=== PATIENT | female | born 1955 | race Caucasian/White ===

== ENCOUNTER → 2018-05-11 11:04 | Outpatient (CLI) | payer OTHER, SELFPAY ==
[2018-05-11 11:36] LABS: Urine Pregnancy, HCG Qual. Negative (Negative)
[2018-05-11 11:38] LABS: Activated Partial Thrombo Time 27.3 seconds (23.6-34.0); Prothrombin Time 10.3 seconds (9.4-11.8)
[2018-05-11 11:52] LABS: Basophils # 0.1 K/mm3 (0-0.2); Eosinophils # 0.2 K/mm3 (0.0-0.4); Eosinophils % 3.8 % (0.1-12.0); Hematocrit 36.5 % (37.0-47.0); Lymphocytes # 1.8 K/mm3 (0.7-4.5); Lymphocytes % 36.7 % (10-50); Mean Corpuscular HGB Conc 32.8 g/dL (31.8-35.4); Mean Corpuscular Hemoglobin 29.4 pg (27.0-31.2); Mean Corpuscular Volume 89.7 fl (81-99); Monocytes # 0.3 K/mm3 (0.1-1.0); Monocytes % 6.4 % (1.7-9.3); Neutrophils # 2.6 K/mm3 (1.8-7.8); Neutrophils % 52.2 % (37.0-80.0); Platelet Count 202 K/mm3 (142-424); Red Blood Count 4.07 M/mm3 (4.20-5.40); Red Cell Distribution Width 13.9 % (11.5-17.5); White Blood Count 4.9 K/mm3 (4.8-10.8)
[2018-05-11 12:59] LABS: Alanine Aminotransferase 46 U/L (12-78); Albumin Level 4.2 gm/dL (3.4-5.0); Albumin/Globulin Ratio 1.2 (1.1-1.8); Alkaline Phosphatase 58 U/L (46-116); Anion Gap 15.3 mEq/L (5-15); Aspartate Amino Transferase 23 U/L (15-37); Bilirubin,Total 0.6 mg/dL (0.2-1.0); Blood Urea Nitrogen 36 mg/dL (7-18); Calcium 9.3 mg/dL (8.5-10.1); Carbon Dioxide 27 mmol/L (21.0-32.0); Chloride 103 mmol/L (98-107); Estimated Glomerular Filt Rate 27 ml/min (>60); GFR (African American) 32 ML/MIN (>60); Globulin 3.4 gm/dl (1.3-3.2); Glucose 105 mg/dL (74-106); Potassium 4.3 mmoL/L (3.5-5.1); Sodium 141 mmol/L (136-145); Total Protein,Serum 7.6 gm/dL (6.4-8.2)
== END ==
PROVIDERS: Visit Provider Surgery
DX: E66.01 Morbid (severe) obesity due to excess calories (principal)
CPT/HCPCS: 36415; 80053; 81025; 85025; 85610; 85730

== ENCOUNTER → 2018-06-02 14:30 | Outpatient (CLI) | payer OTHER, SELFPAY ==
[2018-06-02 15:50] LABS: Blood Urea Nitrogen 28 mg/dL (7-18); Calcium 9.3 mg/dL (8.5-10.1); Carbon Dioxide 27 mmol/L (21.0-32.0); Chloride 101 mmol/L (98-107); Creatinine,Serum 1.17 mg/dL (0.55-1.02); Estimated Glomerular Filt Rate 47 ml/min (>60); GFR (African American) 57 ML/MIN (>60); Glucose 100 mg/dL (74-106); Sodium 139 mmol/L (136-145)
== END ==
PROVIDERS: Visit Provider Surgery
DX: E66.01 Morbid (severe) obesity due to excess calories (principal)
CPT/HCPCS: 36415; 80048

== ENCOUNTER → 2018-07-20 14:09 | Outpatient (CLI) | payer OTHER, SELFPAY ==
[2018-07-20 16:02] LABS: Blood Urea Nitrogen 16 mg/dL (7-18); Creatinine,Serum 0.97 mg/dL (0.55-1.02); Estimated Glomerular Filt Rate 58 ml/min (>60); GFR (African American) 70 ML/MIN (>60)
== END ==
PROVIDERS: Visit Provider Surgery
DX: G89.18 Other acute postprocedural pain (principal)
CPT/HCPCS: 36415; 82565; 84520

== ENCOUNTER → 2018-07-21 10:11 | Outpatient (CLI) | payer OTHER, SELFPAY ==
--- NOTE | 2018-07-21 10:20 | CT_ITS ---
CT abdomen pelvis w con CLINICAL INDICATION: Left-sided abdominal pain ITS.REASON: ABDOMINAL PAIN ORDERING PHYSICIAN: Taco Travis MD PATIENT AGE: 63 years COMPARISON: And TECHNIQUE: Axial images obtained with sagittal and coronal reformats. All CT scans at the facility use one or more dose reduction, viz: automated exposure control, ma/kV adjustment per patient size (including targeted exams where dose is matched to indication, i.e. head), or iterative reconstruction technique. PROCEDURE: Oral Contrast: Redicat IV Contrast: 75 mL of Isovue-370. FINDINGS: There are atelectatic or fibrotic changes in the left lung base. The liver, adrenal glands, and pancreas have an unremarkable appearance. There is a small subcapsular isodensity involving the medial aspect of the spleen at 1 cm axial image #16 nonspecific. There is some minimal stranding of the fat medial to the spleen. There is small amount gas in the distal esophagus with surgical clips at the distal esophageal region. Prior gastric sleeve surgery of the stomach Unremarkable appendix. No intestinal obstruction or free air. There has been prior hysterectomy. There is some mild thickening of the descending and sigmoid colon. This could be due to nondistention versus mild colitis. No evidence of diverticulitis. There is a tiny umbilical hernia containing fat. There is mild stranding of the anterior abdominal wall fat in the right upper quadrant and could be due to postsurgical change. No acute bony anomalies. IMPRESSION: 1. Status post gastric sleeve surgery. There is some mild stranding of the fat in the left upper quadrant lateral to the GE junction and medial to the spleen with some minimal thickening of the pleura of the diaphragm at this area. This could be postsurgical in nature. Suggest 3 month follow-up to confirm stability or resolution. 2. There is a 1 cm cystic area in the subcapsular region of the spleen medially. This is nonspecific and may nearly represent a splenic cyst. Continued follow-up suggested in 3 months. This should be performed with IV contrast. 3. Possible colitis of the descending and sigmoid colon
--- NOTE | 2018-07-21 10:53 | HMH.ITSHM ---
Current Home Medications as stated by this patient Margarita Orozco or residential sales representative. []B-12,SIMVASTATIN,CITRACEL,FERROUS SULFATED, [place],LOSARTIN,LEVOTHYROXINE,OMEPRAZOLE
== END ==
PROVIDERS: PCP Family Medicine; Visit Provider Surgery
DX: G89.18 Other acute postprocedural pain (principal); R10.9 Unspecified abdominal pain
CPT/HCPCS: 74177; Q9967

== ENCOUNTER → 2019-08-05 09:56 | Outpatient (CLI) | payer OTHER, SELFPAY ==
[2019-08-05 10:53] LABS: Erythrocyte Sedimentation Rate 15 mm/hr (0-30)
[2019-08-05 11:57] LABS: Uric Acid 3.8 mg/dL (2.6-7.2)
[2019-08-05 12:05] LABS: C-Reactive Protein < 0.2 mg/dL (0.0-0.9)
[2019-08-06 19:12] LABS: RA Latex Turbid. <10.0 IU/mL (0.0-13.9)
[2019-08-07 07:47] LABS: C-Peptide 2.4 ng/mL (1.1-4.4)
[2019-08-24 15:58] LABS: Antinuclear Antibodies (ANA) NEGATIVE
== END ==
PROVIDERS: Visit Provider Orthopaedic Surgery Hand Surgery
DX: M06.049 Rheumatoid arthritis without rheumatoid factor, unspecified hand (principal)
CPT/HCPCS: 36415; 84550; 84681; 85651; 86038; 86140; 86431

== ENCOUNTER 2021-01-16 13:40 | Emergency (ER) | payer OTHER, SELFPAY ==
[2021-01-16] VITALS (7 sets, daily range): BP systolic 115–134; BP diastolic 68–83; PULSE 60–69; RESP 13–20; TEMP 36.9–37.1; O2SAT 94–98; BMI 31.1
--- NOTE | 2021-01-16 13:40 | ECG_ITS ---
APPROVED REPORT Exam: Resting ECG HR:74 bpm ECG Measurements Heart Rate 74 AXES [place] 154 P 21 QRSd 58 QRS 31 QT 356 T 11 QTc 395 Conclusion Normal sinus rhythm Normal ECG Electronically signed by : Jackson Aguirre, 01/16/2021 21:01:11
--- NOTE | 2021-01-16 13:53 | XR_ITS ---
PROCEDURE: XR CHEST 2V CLINICAL HISTORY: chest pain COMPARISON: No exams were available for comparison FINDINGS: The cardiomediastinal silhouette and pulmonary vascularity are within normal limits. There is a small hiatal hernia. Lungs are clear bilaterally. Degenerative change thoracic spine. IMPRESSION: No acute findings. Dictated by: Sotero Pedraza MD 01/16/2021 14:11 Sotero Pedraza MD in [place] 01/16/2021 14:11
--- NOTE | 2021-01-16 13:59 | HMH.EDGENADL ---
ED Disposition Clinical Impression: Atypical chest pain Disposition: Home, Self-Care Condition on Discharge: Good Instructions: DI for Atypical Chest Pain Additional Instructions: You have been evaluated for chest pain. Please follow-up with your primary care doctor within 24 to 48 hours. Follow-up with cardiology, Dr. Myers as soon as available. Return to the emergency department at once for any new or worsening symptoms, chest pain, shortness of breath, nausea, fatigue, any other concerns Time of Disposition: 17:49 - Critical Care Critical Care Time: No Attestation: On , the high probability of a clinically significant, sudden or life threatening deterioration of the following system(s) required my full and direct attention, intervention and personal management. The time I documented below is in addition to time spent performing reported procedures but includes the following listed in this critical care notation. Medical Decision Making - Medical Records Medical records reviewed: Yes: I reviewed the patient's medical records. - Ellis Inquiry Pt receiving controlled substance: No Vital Signs: 01/16/21 13:46 01/16/21 14:00 01/16/21 14:30 Temperature 98.7 F Temperature Source Oral Pulse Rate 69 66 Pulse Rate [Left Radial] 68 Respiratory Rate 17 18 16 Blood Pressure 130/82 130/83 Blood Pressure [Right Arm] 130/76 Blood Pressure Mean [Right Arm] 94 Blood Pressure Source Automatic Cuff Blood Pressure Source [Right Arm] Automatic Cuff Blood Pressure Position Sitting Blood Pressure Position [Right Arm] Sitting 02 Sat by Pulse Oximetry 94 L 97 94 L Oxygen Delivery Method Room Air Room Air 01/16/21 15:00 01/16/21 15:30 01/16/21 16:11 Temperature Temperature Source Pulse Rate 63 64 60 Pulse Rate [Left Radial] Respiratory Rate 15 13 14 Blood Pressure 124/76 134/83 123/80 Blood Pressure [Right Arm] Blood Pressure Mean [Right Arm] Blood Pressure Source Automatic Cuff Automatic Cuff Blood Pressure Source [Right Arm] Blood Pressure Position Sitting Sitting Blood Pressure Position [Right Arm] 02 Sat by Pulse Oximetry 97 97 97 Oxygen Delivery Method Room Air Room Air - Lab Data Lab Results 01/16/21 13:45: WBC 6.9, RBC 4.57, Hgb 13.6, Hct 40.9, MCV 89.6, MCH 29.9, MCHC 33.4, RDW 13.7, Plt Count 236, MPV 9.2, Neut % (Auto) 52.6, Lymph % (Auto) 38.7, Mitchell % (Auto) 4.8, Eos % (Auto) 2.8, Baso % (Auto) 1.1, Neut # (Auto) 3.6, Lymph # (Auto) 2.7, Mitchell # (Auto) 0.3, Eos # (Auto) 0.2, Baso # (Auto) 0.1 01/16/21 13:45: Sodium 140, Potassium 4.3, Chloride 103, Carbon Dioxide 30, Anion Gap 11.3, BUN 21 H, Creatinine 0.80, Estimated Creat Clear 69, Estimated GFR 72, Est GFR ( Amer) 87, Glucose 93, Calcium 9.6, Troponin I < 0.01 01/16/21 16:43: Troponin I < 0.01 Result diagrams: 01/16/21 13:45 01/16/21 13:45 Orders (Tests/Meds): ORDERS Category Date Time Status Troponin I Q3H Lab 01/16/21 20:00 Ordered ECG Request by /Nse Stat Y 01/16/21 13:53 Ordered - ECG Data Tracing #1 Sinus rhythm with ventricular rate of 74 bpm. QRS 58, QTc 395. No ST segment elevation. - ROBINSON Score for Non-Stemi Age of Patient: 60-69 years old Heart Rate: 50-69 bpm Systolic Blood Pressure: 120-139 mmhg Serum Creatinine: 0.80-1.19 mg/dl CHF Killip Class: I-No CHF Other Risk Factors: None Non-Stemi Risk Score: 102 Medical Decision Narrative: In summary this is a 65-year-old female with history of gastric sleeve procedure presenting to the emergency department with chest pain. Patient clinically stable on arrival. Vital signs within normal limits. Her story is quite concerning. Will obtain CBC, BMP, chest x-ray, EKG, troponin profile. Patient is already received aspirin. Initial EKG is reassuring. No ST segment elevation. No arrhythmia. Initial laboratory results are reassuring. No anemia. No glucose or electrolyte derangement. Initial troponin
[2021-01-16 14:43] LABS: Basophils # 0.1 K/mm3 (0-0.2); Basophils % 1.1 % (0.1-2.0); Chloride 103 mmol/L (98-107); Eosinophils # 0.2 K/mm3 (0.0-0.4); Eosinophils % 2.8 % (0.1-12.0); Hematocrit 40.9 % (37.0-47.0); Hemoglobin 13.6 g/dL (12.2-16.2); Lymphocytes # 2.7 K/mm3 (0.7-4.5); Lymphocytes % 38.7 % (10-50); Mean Corpuscular HGB Conc 33.4 g/dL (31.8-35.4); Mean Corpuscular Hemoglobin 29.9 pg (27.0-31.2); Mean Corpuscular Volume 89.6 fl (81-99); Mean Platelet Volume 9.2 fl (7.4-10.4); Monocytes # 0.3 K/mm3 (0.1-1.0); Monocytes % 4.8 % (1.7-9.3); Neutrophils # 3.6 K/mm3 (1.8-7.8); Neutrophils % 52.6 % (37.0-80.0); Platelet Count 236 K/mm3 (142-424); Potassium 4.3 mmoL/L (3.5-5.1); Red Blood Count 4.57 M/mm3 (4.20-5.40); Red Cell Distribution Width 13.7 % (11.5-17.5); Sodium 140 mmol/L (136-145); White Blood Count 6.9 K/mm3 (4.8-10.8)
[2021-01-16 14:46] LABS: Anion Gap 11.3 mEq/L (5-15); Blood Urea Nitrogen 21 mg/dl (7-17); Calcium 9.6 mg/dl (8.4-10.2); Carbon Dioxide 30 mmol/L (22.0-30.0); Creatinine Clearance Estimated 69 mL/min (50-200); Estimated Glomerular Filt Rate 72 ml/min (>60); GFR (African American) 87 ML/MIN (>60); Glucose 93 mg/dl (74-100)
[2021-01-16 14:59] LABS: Troponin I < 0.01 ng/ml (0.00-0.034)
--- NOTE | 2021-01-16 15:53 | CA_ITS ---
APPROVED REPORT EXAM: Comprehensive 2D, Doppler, and color-flow Echocardiogram Environmental Control Administrator: Gillian Cr, RCS, RVS Ht: 5 ft 2 in Wt: 170lbs BSA: 1.78 BP: 130/76 mmHg Indications: Cp radiating to Left arm,HTN, ex-smoker, Family hx-HD Hyperlipidemia 2D Dimensions IVSd 0.81 cm F: 0.6-1.0 LVEF (Visual) 68.90 % PWd 0.98 cm F: 0.6 - 1.0 LA Volume 50.50 mL LVDd 4.72 cm F: 3.9 - 5.3 LA Volume Index 28.37 mL/m2 (M/F) 16-34 LVDs 2.90 cm F: 2.2 - 3.5 Aortic Root 2.70 cm F: 2.7 - 3.3 Left Atrium 2.91 cm F: 2.7 - 3.8 LVOT 1.80 cm (M/F) 1.5-2.5 M-Mode Dimensions LA Diam 1.83 cm (1.9-4.0) LVDd 5.25 cm (3.5-5.7) Ao Diam 2.73 cm (2.0-3.7) LVDs 3.61 cm (3.5-5.7) EF (Teich) 58.60% EPSs 1.69 cm FS 31.20% EDV (Teich) 132.40 mL TAPSE 2.30 (<1.7) ESV (Teich) 54.80 mL LV Diastology E Decel Time 270.00 (160-240 msec) E/A Ratio 0.73 MED E' 12.10 (< 7 cm/sec) MED A' 11.30 cm/s E'/MED E' Ratio 6.35 (>14) LAT E' 13.80 (<10 cm/sec) LAT A' 11.30 cm/s E/LAT E' Ratio 5.57 (>14) Aortic Valve LVOT Max 107.00 (70-110 cm/s) LVOT VTI 26.45 cm AoV Peak Darin. 147.00 (50-130 cm/s) AI PHT 503.00 ms AO Peak GR. 8.70 mmHg AO Mean GR. 4.80 (<5 mmHg) AO VTI 36.31 (18-25 cm) ZURDO (VTI) 1.85 (2.5-4.5 cm2) Mitral Valve MV A Velocity 105.00 (40-130 cm/s) E/A Ratio 0.73 MV Decel. Time 270.00 (160-240 ms) Pulmonary Valve PV Peak Velocity 91.00 (50-150 cm/s) FL End VMAX 189.00 cm/s Tricuspid Valve TR P. Velocity 225.00 cm/s RAP Estimate 10.00 mmHg RVSP 30.30 mmHg Left Ventricle Left atrium is mildly enlarged, left ventricle is normal size, mild concentric left ventricular hypertrophy, visually estimated ejection fraction 55% with no regional wall motion abnormality, grade 1 diastolic dysfunction seen without tissue Doppler evidence of raise left atrial pressure. Right Ventricle Right atrium and right ventricular qualitatively mildly enlarged with normal contractility. Aortic Valve Aortic valve is minimally thickened and fibrosed, there is no aortic stenosis, there is mild aortic insufficiency. Mitral Valve Mitral valve leaflets are minimally thickened, there is mild mitral regurgitation. Tricuspid Valve Tricuspid valve is grossly normal, there is mild tricuspid regurgitation, calculated right ventricular systolic pressure within normal range. Pulmonic Valve Pulmonic valve is poorly visualized. Great Vessels Aortic root is normal size. There is atheromatous plaque seen in the ascending aorta. Pericardium No significant pericardial effusion noted. Conclusion 1. Mild biatrial enlargement, normal left ventricular size, mild concentric left ventricular hypertrophy, visually estimated ejection fraction 55% with no regional wall motion abnormality, grade 1 diastolic dysfunction seen without tissue Doppler evidence of raise left atrial pressure. 2. Thickened and calcified aortic valve without aortic stenosis, there is mild aortic insufficiency. 3. Atheromatous plaque seen in the ascending aorta. 4. Mild mitral and tricuspid regurgitation. 5. No significant pericardial effusion noted. Electronically signed by : Kelvin Maurer, 01/17/2021 16:16:06
--- NOTE | 2021-01-16 15:54 | HMH.CNCARD ---
History of Present Illness Consult date: 01/16/21 Requesting physician: Petrona Chou Consult reason: chest pain Chief complaint: Chest pain History of present illness: 65-year-old female presented to the ED with chest tightness and heaviness for the past 1-1/2-hour prior to arrival. Patient states she was taking the dog out for a walk and bring him back into the house when she started having chest tightness which was radiating to the right side of the jaw. Patient states the heaviness then began to radiate down the left arm. Patient states she became very short of breath and diaphoretic. Patient stated this pain lasted for about 20 minutes and was resolved prior to coming to the emergency room. Patient states while in the ED, she has had no chest pain, tightness or pressure. Patient denies shortness of breath. Patient denies palpitations or dizziness. engine monitor reveals sinus rhythm with a heart rate of 72 bpm. Blood pressure is stable. Patient does have history of hypertension which is controlled. Patient has history of hyperlipidemia and is on statin therapy. History of hypothyroidism managed by PCP. Patient is a non-smoker. Patient does have history of a gastric sleeve a few years ago. Patient did states she had heart catheterization at [facility] in [facility] over 5 years ago, which she calls was normal. There is significant family history of coronary artery disease. Father had CABG x3 in which he from CVA. Patient states her symptoms have improved. Denies swelling of the lower extremities. Initial work-up was performed in the ED. EKG revealed normal sinus rhythm with no ST or T wave abnormality with a heart rate of 74 bpm. Serial troponins have been ordered. Troponin x1 was negative. Lab work unremarkable. Chest x-ray was performed which revealed no acute findings. CXRFINDINGS: The cardiomediastinal silhouette and pulmonary vascularity are within normal limits. There is a small hiatal hernia. Lungs are clear bilaterally. Degenerative change thoracic spine. IMPRESSION: No acute findings. Discussed plan of care with Dr. Myers. Orders were received from Dr. Myers. Offered admission to patient for atypical chest pain. Patient declined admission stating she was feeling fine and was ready to go home. Recommended patient to stay in the ED until second troponin is resulted. If second troponin is negative, patient may be discharged. Obtained echocardiogram to assess LV function and valve status. Pending on the results of the echocardiogram, medication and treatment therapies may be recommended. Patient will need further cardiac evaluation on an outpatient basis. This can be discussed at cardiac follow-up. Patient will need to follow-up with cardiology clinic within 1 week or sooner if signs and symptoms develop or persist. Patient verbalized understanding that if she begins to have chest pain or increased shortness of breath, to return to the ED for further evaluation and admission to the hospital. Thank you for allowing cardiology to participate in the care of this patient. [facility] History I have reviewed the patient's past medical history: Yes Medical History: Reports:: Hyperlipidemia, Hypertension, Migraine, Seizures *Have you ever received a pneumonia vaccine?: Yes *Have you received a flu vaccine this season?: Yes Other Medical History: Reports: Cataracts, Fibromyalgia, Hypothyroidism, Sinus Problems, Other Other Surgeries: Yes: Bariatric Surgery, Tubal Ligation, Other Amputation: No Fractures: No - *Social History Smoking Status: Former smoker Alcohol Intake: never Substance Use Type: denies use *Occupational Status:: retired Housing: house Household Members: spouse *Travel in the last 8 weeks: Inside the [place] Family Hx:: Cancer, Heart Attack, Coronary Artery Disease, Stroke, Diabetes, Thyroid Disorder, Hypertension, Hyperlipidemia Meds Home Medications Me
[2021-01-16 17:27] LABS: Troponin I < 0.01 ng/ml (0.00-0.034)
== END 2021-01-16 18:05 | disposition home or self-care (01) ==
PROVIDERS: Emergency Provider Emergency Medicine; PCP Family Medicine
DX: R07.89 Other chest pain (principal); I10 Essential (primary) hypertension; E03.9 Hypothyroidism, unspecified; E78.5 Hyperlipidemia, unspecified; Z79.899 Other long term (current) drug therapy
CPT/HCPCS: 71046; 80048; 84484; 85025; 93005; 93306; 99282